=== PATIENT | male | born 2000 | race Caucasian/White ===

== ENCOUNTER 2020-09-27 21:49 | Emergency (ER) | payer OTHER ==
[~2020-09-27] VITALS: Ht 170.2 cm; Wt 77.1 kg
[2020-09-27 21:55] VITALS: Ht 170.2 cm; Wt 77.1 kg
[2020-09-27 22:03] VITALS: BP 116/86
== END 2020-09-27 22:04 | disposition other institution (70) ==
LOC: ED 21:49
DX: Z02.89 Encounter for other administrative examinations (principal)
CPT/HCPCS: J7060